=== PATIENT | male | born 1955 | race Caucasian/White ===

== ENCOUNTER 2016-06-08 09:03 | Emergency (ER) | payer OTHER ==
[2016-06-08] MEDS ORDERED: NORMAL SALINE 10 ML SYRINGE FLUSH IVP PRN (09:30)
[2016-06-08] MEDS ORDERED: Sodium Chloride 0.9% 1,000 ML PRIMARY IV ONE (09:30)
[2016-06-08] MEDS ORDERED: ONDANSETRON 4 MG/2 ML VIAL IVP ONE (09:30)
--- NOTE | 2016-06-08 09:36 | EKG ---
[address] [address] Measurements Intervals [place] Rate: 147 P: RI: 0 QRS: -40 QRSD: 94 T: 62 QT: 277 QTc: 361 Interpretive Statements ATRIAL FIBRILLATION WITH RAPID VENTRICULAR RESPONSE POSSIBLE ANTERIOR MYOCARDIAL INFARCTION [30 ms Q WAVE IN V3/V4, OR R < 0.2 mV IN V4], OF INDETERMINATE AGE INFERIOR MYOCARDIAL INFARCTION [40+ ms Q WAVE AND/OR ST/T ABNORMALITY IN II/aVF], PROBABLY OLD No previous ECG available for comparison Electronically Signed On 06-08-16 12:35:10 MDT by Gamal Carrillo MD [email or web address]
[2016-06-08] MEDS ORDERED: DILTIAZEM 5 MG/ML - 5 ML IV ONE (09:39)
[2016-06-08] MEDS ORDERED: Diltiazem Drip 125 MG in Sodium Chloride 0.9% 100 ML IV ONE (09:41)
[2016-06-08 09:47] LABS: VENOUS PH 7.49 (7.32-7.42)
[2016-06-08 10:05] LABS: BASOPHILS # (AUTO) 0.03 10*3/UL; BASOPHILS % (AUTO) 0.2 % (0-1); EOSINOPHILS # (AUTO) 0 10*3/UL; EOSINOPHILS % (AUTO) 0 % (0-8); HEMATOCRIT 46.5 % (42.0-52.0); HEMOGLOBIN 16.1 g/dL (14.0-18.0); LYMPHOCYTES # (AUTO) 0.71 10*3/uL; MEAN CORPUSCULAR HGB CONC 34.6 g/dL (33-37); MONOCYTES # (AUTO) 0.59 10*3/UL (0.3-0.8); MONOCYTES % (AUTO) 4.5 % (5-15); NEUTROPHILS # (AUTO) 11.78 10*3/UL; NEUTROPHILS % (AUTO) 89.5 % (50-80); RED BLOOD COUNT 5.19 10^6/uL (4.70-6.10)
[2016-06-08 10:08] LABS: PLATELET MORPHOLOGY COMMENT NORMAL MORPHOLOGY (NORM); RBC MORPHOLOGY COMMENT NORMAL MORPHOLOGY (NORM); WBC MORPHOLOGY COMMENT NORMAL MORPHOLOGY (NORM)
[2016-06-08 10:18] LABS: BUN/CREATININE RATIO 21.87 (6-20); CALCIUM 8.8 mg/dL (8.7-10.7); MAGNESIUM 1.7 mg/dL (1.6-2.4); SERUM ALBUMIN 3.7 g/dL (3.5-4.8)
[2016-06-08 10:33] LABS: CREATINE KINASE MB 0.43 NG/ML (0.00-5.00)
--- NOTE | 2016-06-08 10:51 | DI ---
PA /LATERAL CHEST X-RAY, 06/08/2016 9:30 AM : Clinical History: Fever. Previous Exam: None at this facility. There is no acute soft tissue or bony abnormality. Heart size is at the upper limits of normal withou t evidence of CHF. Lungs are clear. Mediastinal structures are normal. There are no pulmonary nodules . Reading: Normal chest x-ray.
[2016-06-08 10:54] LABS: TROPONIN I 0.125 ng/mL (< 0.040)
[2016-06-08] MEDS ORDERED: Sodium Chloride 0.9% 100 ML IV ONE (11:15)
[2016-06-08] MEDS ORDERED: ERTAPENEM 1 GM VIAL ONE (11:15)
[2016-06-08] MEDS ORDERED: Ertapenem Inj 1 GM in Sodium Chloride 0.9% 100 ML IV ONE (11:19)
[2016-06-08 11:25] LABS: BILIRUBIN,URINE SMALL (NEG); CLARITY,URINE CLEAR (CLEAR); COLOR,URINE YELLOW; GLUCOSE, URINE (UA) NEGATIVE (NEG); NITRATE,URINE NEGATIVE (NEG); OCCULT BLOOD,URINE LARGE (NEG); PH,URINE 5.5 (5.0-8.5); PROTEIN,URINE >300 mg/dl (NEG); UROBILINOGEN,URINE 0.2 EU/dL (0.2)
--- NOTE | 2016-06-08 11:28 | PDOC ---
General Adult HPI - General Chief Complaint: General Medical Stated Complaint: FLU LIKE SYMPTOMS Date Seen by Provider: 06/08/16 Time Seen by Provider: 09:05 Source: POSITIVE: Patient, EMS Exam Limitations: POSITIVE: No limitations Nurse's Notes Reviewed & Considered: Yes EMS Report Reviewed & Considered: Verbal - History of Present Illness Initial Comment: The patient is a 60 year old male who is brought to the ER by the [facility] ambulance. Patient states that for the past 3 to 4 days he has had fever, chills and myalgia. He has also noted "a sore" between the 4th and 5th toes on the left. He has also noted redness, warmth and pain to the distal portion of his left lower leg. Patient reports he has a history of atrial fibrillation, insulin dependent diabetes mellitus, and deep vein thrombosis. He is on warfarin. He moved to [place] from [place] 13 months ago, and lives in [place]. No chest pain, coughor dyspnea. Some vomiting. Have you received a tetanus shot in the past 10 years?: Yes Body Location Affected: REPORTS: Lower Extremity (L), Other (fever and chills) Timing: REPORTS: Gradual Duration: >24 hours (3 to 4 days) Severity: Moderate Quality: REPORTS: "Pain" (left lower leg) Context: REPORTS: None Modifying Factors: improves with: Vomiting, Walking, Other (pain on palpation, left lower leg) Similar Symptoms Previously: No Recent Care Received: REPORTS: Denies Any Prior Injuries Related to Current Complaint?: No - Patient Home Medications Home Medications: Home Medications Detemir Inj [Levemir Inj] 88 unit SUBCUT QD vial 10/13/15 Furosemide 1 tab PO DAILY tab 10/13/15 Glimepiride 2 mg PO DAILY tab 10/13/15 Hydrochlorothiazide 1 tab PO DAILY tab 10/13/15 Knee Scooter, Single Leg 1 unit EXTERNAL QD #1 unit 10/13/15 Levothyroxine Sodium 1 tab PO DAILY tab 10/13/15 Metformin HCl 2 tab PO QPM tab 10/13/15 Metformin HCl 3 tab PO QAM tab 10/13/15 Warfarin Sodium 1 tab PO DAILY tab 10/13/15 Crutch 2 each EXTERNAL QD #1 each 10/14/15 Lisinopril 1 tab PO DAILY tab 11/05/15 - Patient Allergies Allergies/Adverse Reactions: Allergies Allergy/AdvReac Type Severity Reaction Status Date / Time Penicillins Allergy Severe RASH Verified 06/08/16 09:21 Past Medical History - heen HEENT History: Denies History Cardiovascular History: Hypertension, Arrhythmia, DVTs Additional Cardiovasular History: A FIB. BILAT DVT Respiratory History: Denies History Gastrointestinal History: Denies History Genitourinary History: Denies History Endocrine History: Type 2 Diabetes (insulin), Hypothyroidism Prosthesis or Implant: No Additional Musculoskeletal History: BILAT TOE AMPUTATIONS Additional Neurological History: NEUROPATHY Blood Disorders: Clotting Disorders Psychiatric History: Denies History Cancer History: Denies History In Past Year Been Physically Harmed or Verbally Threatened: No History of MDRO: Yes Type of MDRO: MRSA Tobacco Use: Never Smoker Alcohol Use: Rarely Substance Use Type: None Previous Surgical History: Yes Type / Date of Surgery: TOE AMPUTATIONS Significant Family History: No pertinent family hx Past Medical History Reviewed: Reviewed - No Changes ROS - Limitations ROS Limitations: No Limitations Constitution: REPORTS: Chills, Fever Cardiovascular: REPORTS: Denies Cardiac Symptoms Respiratory: REPORTS: Denies Resp Symptoms Neurological: REPORTS: Denies Neuro Symptoms Gastrointestinal: REPORTS: Nausea, Vomitting (occasional) Endocrine: REPORTS: Denies Symptoms Musculoskeletal: REPORTS: Other (cellulitis left lower leg) Genitourinary: REPORTS: Denies Symptoms Eyes: REPORTS: Denies Symptoms ENT: REPORTS: Denies Symptoms Skin: REPORTS: Denies Skin Symptoms Lympathic: REPORTS: Denies Lympathic Symptoms Immunologic: POSITIVE: Denies Symptoms Psychiatric: POSITIVE: Denies Psych Symptoms General Adult Exam - General Appearance General Appearance: POSITIVE: Alert, Cooperative, No Acute Distress, No Evidence of Trauma - HEENT HEENT: POSITIVE: Head Inspection Nml, Eyes Inspection Nml, Ears Inspection Nml, Nose Inspection Nml, Oral/Dental Inspect. Nml, Pharynx Inspect. Nml, PERRL, EOMI - Pupils Pupil Size: 4 mm: Bilateral (perrl) - Neck Neck: POSITIVE: Normal Inspection, Thyroid Normal - Respiratory Respiratory: POSITIVE: No Respiratory Distress, Breath Sounds Normal, Chest Non- Tender - Cardiovascular Cardiovascular: POSITIVE: Irregularly Irreg. Rhythm, Tachycardia Peripheral Pulses: Radial (R): 2+, Radial (L): 2+, Dorsalis-pedis (R): 2+, Dorsalis-pedis (L): 2+ - Abdomen Abdomen: Soft: (All Quadrants), Normal Bowel Sounds: (All Quadrants), Denies Tenderness: (All Quadrants), No Splenomegaly: (All Quadrants), No Hepatomegaly: (All Quadrants), No Guarding: (All Quadrants), No Rebound: (All Quadrants), No Palpable Pulse: (All Quadrants), No Palpabale Mass: (All Quadrants), No Distention: (All Quadrants), No Rigidity: (All Quadrants) - Back Back: POSITIVE: Normal Inspection. NEGATIVE: CVA Tenderness, Lumbosacral Tenderness - Skin Skin: POSITIVE: Warmth, Erythema, Other (cellulitis, left lower leg) - Extremities Extremity: Non-Tender: (RUE), (LUE), (RLE), Normal ROM: (All Extremities), Pelvis Stable: (All Extremities), Normal Tendon Exam: (All Extremities), Edema / Swelling: (LLE), Tender: (LLE) Additional Extremities Details: Evaluation of left leg reveals cellulitis left lower leg. Painful lesion between left 4th and 5th toes. - Neurological / Psychological Neurological: POSITIVE: Oriented X3, skip loader Normal As Tested, Motor Normal, Sensation Normal, 5, 6 Images - Lower Extremities Lower Extremities: 1 - cellulitis 2 - cellulitis General Adult Progress - Results Reviewed by me Xrays/CTs/US Reviewed by me: Yes Discussed with Radiologist: Yes Radiology Findings: CXR normal Lab Results Reviewed: Yes Lab Results:: Laboratory Results 06/08/16 06/08/16 Range/Units 09:30 09:50 WBC 13.16 H (4.8-10.8) 10^3/uL RBC 5.19 (4.70-6.10) 10^6/uL Hgb 16.1 (14.0-18.0) g/dL Hct 46.5 (42.0-52.0) % MCV 89.6 (80-90) FL MCH 31.0 (27-31) PG MCHC 34.6 (33-37) g/dL RDW Std Deviation 45.2 (39-50) fL RDW Coeff of Thomas 14.0 (11.5-14.5) % Plt Count 135 L (140-350) 10*3/uL MPV 11.0 (7.4-12.2) FL Immature Gran % (Auto) 0.4 (0-5) % Neut % (Auto) 89.5 H (50-80) % Lymph % (Auto) 5.4 L (10-50) % [place] % (Auto) 4.5 L (5-15) % Eos % (Auto) 0 (0-8) % Baso % (Auto) 0.2 (0-1) % Immature Gran # (Auto) 0.05 10*3/UL Neut # (Auto) 11.78 10*3/UL Lymph # (Auto) 0.71 10*3/uL [place] # (Auto) 0.59 (0.3-0.8) 10*3/UL Eos # (Auto) 0 10*3/UL Baso # (Auto) 0.03 10*3/UL WBC Morphology Comment Normal morphology (NORM) Plt Morphology Comment Normal morphology (NORM) RBC Morph Comment Normal morphology (NORM) PT 12.4 H (9.7-11.4) secs INR 1.20 (0.00-5.90) N/A VBG pH 7.49 H (7.32-7.42) VBG pCO2 32 L (45-55) mmHg VBG HCO3 25 (22-26) mmol/L VBG Base Excess 1 (-2-2) MMOL/L Sodium 133 L (135-145) meq/L Potassium 4.0 (3.8-5.2) meq/L Chloride 95 L (98-112) meq/L Carbon Dioxide 24 (23-33) meq/L Anion Gap 14 (5-20) BUN 35 H (7-22) mg/dL Creatinine 1.6 H (0.70-1.50) mg/dL Estimated GFR 44 (>60 ml/min/1.73m(2)) BUN/Creatinine Ratio 21.87 H (6-20) Glucose 171 H (78-110) mg/dL Calculated Osmolality 287.0 (267-292) mOsm/kg Lactic Acid 1.6 (0.70-2.10) MMOL/L Calcium 8.8 (8.7-10.7) mg/dL Magnesium 1.7 (1.6-2.4) mg/dL Total Bilirubin 0.8 (0.3-1.2) mg/dL AST 63 H (21-57) IU/L ALT 31 (21-72) IU/L Alkaline Phosphatase 61 (38-126) IU/L CK-MB (CK-2) 0.43 (0.00-5.00) NG/ML Troponin I 0.125 H* (< 0.040) ng/mL Total Protein 6.9 (6.1-8.0) g/dL Albumin 3.7 (3.5-4.8) g/dL Globulin 3.2 (2.50-4.10) g/dL Albumin/Globulin Ratio 1.10 L (1.3-2.0) mg/g EKG Interpreted/Reviewed By Me:: Yes (atrial fib with rapid ventricular response ) EKG Interpretation:: POSITIVE: Normal Intervals, Normal [place], Normal QRS, Normal ST/T. NEGATIVE: Normal Sinus Rhythm, Normal Rate, Abnormal EKG (atrial fib with rapid ventricular response.) - Patient's Progress Pain Medication Addressed: POSITIVE: Patient Refused School/Work Release Addressed: POSITIVE: Not Applicable Re-Examine Time: 10:25 Re-Examine Comment: patient given diltiazem, 25 mg bolus and the diltiazem by constant infusion, 10 mg/hr. Ventricular response down to 90-100. Blood cultures drawn and Invanze, 1 gram IV given. Re-Examine Time:: 10:58 Re-Examine Comment: Case discussed with Dr. Stiles, hospitalist, who declines to admit patient here; recommends trans zita to [facility]. Case then discussed with Dr. Wilson, hospitalist, and Dr. Choi, ER, at [facility], who accepted patient in transfer. Patient transferred to [facility] by [facility] ambulance. Status: POSITIVE: Improved, Re-Examined Antibiotics Given: Yes (Invanze, one gram IV) Quality Measure Initiative: CP/AMI: POSITIVE: EKG, ASA - Consult Consult (If Yes, Name of Consulting MD & Time Called): Yes (Dionicio Pearce and Jimbo as above) Consulting MD will see pt:: POSITIVE: Recommended Transfer Counseled: POSITIVE: Patient, RE: Lab Results, RE: Radiology Results, RE: DX, RE : Need for F/U Patient Care Time - Estimated PCT Patient Care Time (In Minutes): 55 Vital Signs - Recent Vital Signs Vital Signs: Vital Signs (Last 8 hours) Temp Pulse Resp BP Pulse Ox 06/08/16 09:05 101.2 F H 160 H 22 109/66 90 - VS Reviewed Vital Signs Reviewed: Yes Discharge Clinical Impression: Cellulitis, Elevated troponin, Atrial fibrillation, Renal function impairment, Diabetes mellitus Discharge Disposition: Transferred to Short Term Facility Condition: Fair Date Decision to Transfer to Another Facility: 06/08/16 Time Decision to Transfer to Another Facility: 10:58
[2016-06-08 11:34] LABS: URINE SAMPLE TYPE CLEAN CATCH URINE
[2016-06-08 11:35] LABS: URINE CRYSTALS MODERATE
[2016-06-08 11:36] LABS: URINE CASTS FEW
[2016-06-08 12:44] VITALS: RESP 18; TEMP 102.5
== END 2016-06-08 12:05 | disposition short-term general hospital (02) ==
LOC: ER 09:03
DX: L03.032 Cellulitis of left toe (principal); I48.91 Unspecified atrial fibrillation; N28.9 Disorder of kidney and ureter, unspecified; R79.89 Other specified abnormal findings of blood chemistry; R50.9 Fever, unspecified; E11.9 Type 2 diabetes mellitus without complications; Z86.718 Personal history of other venous thrombosis and embolism; Z79.01 Long term (current) use of anticoagulants; Z79.4 Long term (current) use of insulin
CPT/HCPCS: 36415; 71020; 80053; 81001; 81003; 82553; 82803; 83605; 83735; 84484; 85025; 85610; 87040; 87804; 93005; 93010; 96365; 96366; 96368; 96375; 96376; 99285; J1335; J2405; J7030; J7050